=== PATIENT | male | born 1945 | race Caucasian/White ===

== ENCOUNTER 2017-04-13 22:13 | Emergency (ER) | payer MEDICARE ==
[2017-04-13] MEDS ORDERED: NS 0.9% 1000 ML* 1,000 ML IV ONE (22:34)
[2017-04-13 23:02] LABS: Hematocrit 35 % (42-52); Hemoglobin 11.7 g/dl (14.0-18.0); Mean Corpuscular HGB Conc 33 g/dl (31-36); Mean Corpuscular Hemoglobin 30 pg (27-31); Mean Corpuscular Volume 91 fL (80-94); Mean Platelet Volume 8 um3 (7.4-10.4); Red Blood Count 3.88 10^6/ul (4.0-5.4); Red Cell Distribution Width 14 % (10.5-15); White Blood Count 16.7 10^3/ul (3.5-10.8)
[2017-04-13 23:06] LABS: Comments Flag Yes
[2017-04-13 23:12] LABS: Urine Bacteria Absent (Absent); Urine Bilirubin Negative (Negative); Urine Glucose Negative (Negative); Urine Nitrite Negative (Negative)
[2017-04-13 23:17] LABS: BUN/Creatinine Ratio 18.5 (8-20); Calcium 9.6 mg/dL (8.6-10.3); EGFR African American 73.5 (>60); EGFR Non-African American 57.1 (>60); Globulin 2.6 g/dL (2-4); Total Bilirubin 0.6 mg/dL (0.2-1.0); Total Protein 6.6 g/dL (6.4-8.9)
[2017-04-13] MEDS ORDERED: Iodixanol* (CONTRAST) 320 MG/ML 100 ML SDV IV ONE (23:34)
[2017-04-13 23:48] LABS: Hypochromasia 1+; Macrocytosis 1+; Microcytosis 1+; Polychromasia 1+
[2017-04-13 23:53] LABS: Add Diff/Slide Review? Manual Diff Added
[2017-04-13 23:56] LABS: Add Path Review? YES; Immature Granulocytes 2 % (0-9); Neutrophil % 46 % (38-83); Reactive Lymph % 1 % (0-6)
[2017-04-14] MEDS ORDERED: Levofloxacin TAB* 500 MG PO ONE (00:33)
--- NOTE | 2017-04-14 00:40 | ED ---
Tino Lea Rebecca, scribed for Ronak Velez on 04/13/17 at 2227 . GI/ HPI - HPI Summary HPI Summary: Pt is a 71 y/o M who presents to ED c/o hematuria. Sx began suddenly at 2115 tonight and have been intermittent since onset. Reports 3 episodes of urination since onset, all of which have had blood. Sx aggravated and alleviated by nothing. Denies fever, cough, SOB. Denies any pain. Denies any trauma though he notes heavy lifting over the weekend. Takes 40 mg ASA every day. 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 Urologist is Dr. Hall, last seen 3 weeks ago. - History of Current Complaint Chief Complaint: EDUrogenitalProblems Time Seen by Provider: 04/13/17 22:24 Stated Complaint: BLOOD IN URINE Hx Obtained From: Patient Onset/Duration: Started Hours Ago - 1 hour ago, Still Present Timing: Intermittent - 3 episodes of hematuria Current Severity: None Pain Intensity: 0 Associated Signs and Symptoms: Positive: Hematuria, Other: - Denies SOB and any pain. Negative: Fever, Cough Aggravating Factor(s): Nothing Alleviating Factor(s): Nothing - Allergy/Home Medications Allergies/Adverse Reactions: Allergies Allergy/AdvReac Type Severity Reaction Status Date / Time Diclofenac Allergy FLUID Verified 04/13/17 22:15 RETENTION Ibuprofen Allergy FLUID Verified 04/13/17 22:15 RETENTION PMH/Surg Hx/FS Hx/Imm Hx Endocrine/Hematology History: Denies: Hx Diabetes, Hx Thyroid Disease Cardiovascular History: Denies: Hx Congestive Heart Failure, Hx Deep Vein Thrombosis, Hx Hypertension , Hx Myocardial Infarction, Hx Pacemaker/ICD Respiratory History: Denies: Hx Asthma, Hx Chronic Obstructive Pulmonary Disease (COPD), Hx Lung Cancer, Hx Pneumonia, Hx Pulmonary Embolism GI History: Reports: Hx Gastroesophageal Reflux Disease Denies: Hx Gall Bladder Disease, Hx Gastrointestinal Bleed, Hx Ulcer, Hx Urosepsis History: Denies: Hx Dialysis, Hx Kidney Stones, Hx Renal Disease Musculoskeletal History: Reports: Hx Arthritis - HANDS Denies: Hx Rheumatoid Arthritis, Hx Osteoporosis Sensory History: Reports: Hx Contacts or Glasses - GLASSES, Hx Hearing Aid - BILATERAL,WILL REMOVE Opthamlomology History: Reports: Hx Contacts or Glasses - GLASSES Neurological History: Denies: Hx Dementia, Hx Migraine, Hx Seizures, Hx Transient Ischemic Attacks (TIA) Psychiatric History: Reports: Hx Depression Denies: Hx Anxiety, Hx Panic Disorder, Hx Schizophrenia, Hx Bipolar Disorder - Cancer History Cancer Type, Location and Year: 2013 - Surgical History Surgery Procedure, Year, and Place: 1970s APPENDECTOMY [place],. 1949s T&A [place]. 1970s LEFT KNEE [place],TURP. 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 Negative: pain All Other Systems Reviewed And Are Negative: Yes Physical Exam - Summary Physical Exam Summary: Appearance: Well appearing, no pain distress Skin: warm, dry, reflects adequate perfusion Head/face: normal Eyes: EOMI, KRZYSZTOF ENT: normal Neck: supple, nontender Resp: CTA, breath sounds present Cardio: RRR, pulses symm Abd: nontender, soft Bowel: present Musc: normal, strength/ROM intact Neuro: normal, sensory motor intact, A&Ox3 Triage Information Reviewed: Yes Vital Signs On Initial Exam: Initial Vitals Temp Pulse Resp BP Pulse Ox 98.2 F 68 18 150/73 98 04/13/17 22:15 04/13/17 22:15 04/13/17 22:15 04/13/17 22:15 04/13/17 22:15 Vital Signs Reviewed: Yes Diagnostics - Vital Signs Vital Signs Temp Pulse Resp BP Pulse Ox 04/13/17 22:15 98.2 F 68 18 150/73 98 - Laboratory Result Diagrams: 04/13/17 22:54 04/13/17 22:54 Lab Statement: Any lab studies that have been ordered have been reviewed, and results considered in the medical decision making process. - CT Abd/Pel CT CT Interpretation: No Acute Changes - No inflammatory process identified in the abdomen or pelvis. No adenopathy or collection seen. No explanation seen for this patient's hematuria. CT Interpretation Completed By: Radiologist Re-Evaluation - Re-Evaluation First Eval Re-Evaluation Time: 00:33 Change: Improved Comment: Discussed results with pt and the curent D/C plan. He agrees and understands. GIGU Course/Dx - Course Assessment/Plan: Pt is a 71 y/o M with a CC of 3 episodes of hematuria since 2100 tonight. Denies any pain, fever, SOB, cough. No recent trauma. 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 UA reveals urine color: red, specific gravity: 1.008, urine protein: 2+, urine blood: 3+, leukocyte esterate : 3+, urine WBC: 3+, urine RBC 3+. WBC: 16.7. Findings consistent with UTI. Abd/ Pel CT reveals no acute findings. Pt will be D/C to home with Dx of hematuria, UTI and Hx of CLL with an Rx for Abx and a follow up with urology. Pt understands and is agreeable. - Diagnoses Provider Diagnoses: UTI (urinary tract infection), Hematuria, History of chronic lymphocytic leukemia Discharge - Discharge Plan Condition: Stable Disposition: HOME Prescriptions: Levofloxacin TAB* [Levaquin TAB*] 500 mg PO DAILY #9 tab Patient Education Materials: Urinary Tract Infection in Men (ED), Hematuria (ED ) Referrals: Manuel Abraham MD [Medical Doctor] - 3 Days (Follow up within the next 3 days. ) The documentation as recorded by the Tino treadwell Rebecca accurately reflects the service I personally performed and the decisions made by , Ronak Velez.
[2017-04-14 00:52] VITALS: BP 114/58
--- NOTE | 2017-04-14 07:33 | RAD ---
INDICATION: Hematuria COMPARISON: CT September 30, 2016 TECHNIQUE: Axial source images were obtained from the hemidiaphragms to the symphysis pubis following administration of 90 mL Visipaque 320. The examination was requested without oral contrast. Coronal and sagittal reconstructed images were acquired. Lung bases: There is mild bibasilar atelectasis. Liver: The liver is normal in size. There are no masses. There is no ductal dilatation. Gallbladder: The gallbladder is partially contracted. There may be a small amount of pericholecystic fluid. Spleen: The spleen is normal in size. There are no masses. Pancreas: There is no focal pancreatic mass or ductal dilatation. Adrenal glands: There is no evidence of adrenal mass. Kidneys: The right kidney is remarkable for a small renal cortical cysts. The left renal mass has been resected compatible with partial nephrectomy. There is a localized fluid collection with a small amount of fat consistent with this partial nephrectomy. There is prompt perfusion and excretion bilaterally. Adenopathy: There is no evidence of adenopathy by size criteria. Fluid collections: There are no free or localized fluid collections. Vessels:There are no significant atherosclerotic changes involving the aorta. There is no focal aneurysm. The iliac vessels are normal in caliber. The IVC appears normal. GI tract: Limited evaluation without oral contrast. No obstructive findings. Mild distention stomach with ingested material. Pelvic organs: The prostate is enlarged Bladder: There are no bladder masses. The bladder wall is mildly trabeculated. Abdominal and pelvic soft tissues: Small fat-containing bilateral inguinal hernias with prior repair on the right. Osseous structures: There are no acute osseous findings. Other: None IMPRESSION: 1. Interval partial left nephrectomy. 2. Partially contracted gallbladder. 3. BPH with mildly trabeculated bladder wall. 4. Small fat-containing inguinal hernias are noted bilaterally.
--- NOTE | 2017-04-16 08:48 | PN ---
Progress Note - Progress Note Note: Patient's preliminary urine culture obtained and showed E.Coli growth of 10-25, 000. Was diagnosed and treated with Levaquin while in ED. Will wait for final culture results. No change needed at this time.
--- NOTE | 2017-04-17 08:54 | PN ---
Progress Note - Progress Note Note: Final culture results show susceptibility to Levaquin. This is what patient was treated with while in ED. No change needed at this time.
== END 2017-04-14 00:51 | disposition home or self-care (01) ==
LOC: ED 22:13
DX: R31.9 Hematuria, unspecified (principal); N39.0 Urinary tract infection, site not specified
CPT/HCPCS: 36415; 74177; 80053; 81003; 81015; 82550; 83690; 85025; 85060; 85610; 85730; 87077; 87086; 87186; 99283; Q9967

== ENCOUNTER 2017-07-26 06:36 | Observation (INO) | payer MEDICARE ==
--- NOTE | 2017-07-05 10:29 | HP ---
CC: Dr. Jignesh Lemus* DATE OF PLANNED ADMISSION AND SURGERY: 07/26/17 HISTORY OF PRESENT ILLNESS: Mr. Gandhi is a 71-year-old white male who is admitted with partial urinary retention and prostate enlargement for cystoscopy and transurethral resection of the prostate. I have been following Mr. Gandhi for the last 20 years because of a history of bladder outlet obstruction and prostate enlargement. He underwent a transurethral resection of the prostate in 2000 for partial urinary retention. In 2006, there was recurrence of his voiding symptoms and the prostate had again enlarged, and he underwent another transurethral resection. The pathology was benign. Over the last 3-4 years, he developed recurrence of his obstructive voiding symptoms, and cystoscopy showed an enlarging obstructing prostate. But, his voiding was manageable. In November 2016, he was noted to have a solid mass of his left kidney. He underwent a partial robotic laparoscopic left nephrectomy at [facility]. 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 He had been followed by periodic ultrasounds. Following his partial nephrectomy, patient went into urinary retention and has had residual in the vicinity of 300 cc. He had been managed by intermittent self-catheterizations, and also was placed on Finasteride and Tamsulosin. He has continued to have a post-void residual varying between 100 to 300 cc. He had cystoscopy which confirmed a large and obstructing prostate. Urodynamic studies showed a high voiding diestrual pressure of 65 cm of water, indicating obstruction as well as good diestrual function, making him a good candidate for transurethral resection of the prostate. PAST MEDICAL HISTORY AND SYSTEM REVIEW: The patient has chronic lymphocytic leukemia diagnosed in May 2014. He has been asymptomatic and on no treatment. His white count is about 17,000. His platelets are 140,000. He has been doing well and has not required any treatment. Two months ago, he presented to the emergency room with gross hematuria and urinary tract infection that was noted to be secondary to his large prostate and large post-void residual. On that visit, he had a CT of the abdomen and pelvis which was normal, showing only the changes of partial left nephrectomy. There were no calculi and no other renal masses. The prostate was enlarged. He was treated with a course of antibiotic with resolution of his symptoms. The patient has a history of depression. He also has osteoporosis. MEDICATIONS: He is maintained on Celexa 40 mg daily. He is on iron supplement. He takes vitamin D and calcium supplement. ALLERGIES: He denies any allergies to medications. SOCIAL HISTORY: He gives distant history of smoking. He drinks 1-2 beers a day. PHYSICAL EXAMINATION GENERAL: Pleasant and healthy-looking white male. VITAL SIGNS: Blood pressure 130/70, pulse 60. HEART: Regular and rhythmic, no murmurs. LUNGS: Clear. ABDOMEN: Soft, no masses, no tenderness, and no CVA tenderness. EXTERNAL GENITALIA: Normal. RECTAL EXAM: Showed an enlarged but non-suspicious prostate. IMPRESSION: 1. Partial urinary retention due to prostate enlargement, history of urinary tract infection, good destrual function by urodynamic studies. 2. History of oncocytoma of the left kidney, status post partial left nephrectomy with good surgical result. 3. Chronic lymphocytic leukemia, asymptomatic, stable, and on no treatment. PLAN: For cystoscopy and transurethral resection of the prostate. I discussed the above plans in detail with the patient. Some of the potential complications, including gross hematuria, urinary retention, and a small incidence of urinary incontinence. I discussed all the above plans with the patient and all his questions were answered. [id number]/[facility] #: [id number] [facility] FACILITYRodrigo
[~2017-07-26 06:36] MED LIST: Buffered Lidocaine 0.9% SYRIN* 5 ML/SYR SYRINGE INTRADERM ONE
[2017-07-26] MEDS ORDERED: cefTRIAXone(*) 2 GM ADDV.VIAL IVPB ONE (06:42)
[2017-07-26] MEDS ORDERED: Buffered Lidocaine 0.9% SYRIN* 5 ML/SYR SYRINGE ONE (06:42)
[2017-07-26] MEDS ORDERED: fentaNYL* 50 MCG/ML 2 ML VIAL (100 MCG VIAL) ONE (07:01)
[2017-07-26] MEDS ORDERED: Midazolam* 1 MG/ML 2 ML VIAL (2 MG) ONE (07:01)
[2017-07-26] MEDS ORDERED: fentaNYL* 50 MCG/ML 2 ML VIAL (100 MCG VIAL) IV PRN (07:49)
[2017-07-26] MEDS ORDERED: Ondansetron INJ* 2 MG/ML VIAL IV PRN (07:49)
[2017-07-26] MEDS ORDERED: DiMENhydriNATE IV* 50 MG/ML VIAL IV PUSH PRN (07:49)
[2017-07-26] MEDS ORDERED: HYDROcodone/ACETAMIN 5-325 MG* 1 TAB PO PRN (07:49)
[2017-07-26] MEDS ORDERED: Acetaminophen TAB* 325 MG PO PRN (07:49)
[2017-07-26] MEDS ORDERED: Desflurane* 240 ML INH ONE (08:15)
[2017-07-26] MEDS ORDERED: Dexamethasone IV* 4 MG/ML 1 ML (4 MG) ONE (08:15)
[2017-07-26] MEDS ORDERED: Lidocaine 2% PF * 5 ML VIAL ONE (08:15)
[2017-07-26] MEDS ORDERED: Propofol* 10 MG/ML 20 ML BTL IV PUSH ONE (08:15)
[2017-07-26] MEDS ORDERED: Famotidine IV* 10 MG/ML 2 ML (20 mg) ONE (08:15)
[2017-07-26] MEDS ORDERED: KETAMINE HCL* 50 MG/ML 10 ML VIAL ONE (08:18)
[2017-07-26] MEDS ORDERED: EPHEDrine (Pressors)* 50 MG/ML VIAL ONE (08:26)
[2017-07-26] MEDS ORDERED: oxyCODONE/Acetamin 5/325 MG* TAB PO PRN ×2 (13:13→13:28)
[2017-07-26] MEDS ORDERED: Oxybutynin TAB* 5 MG PO PRN (13:13)
[2017-07-26] MEDS ORDERED: Lidocaine 2% JELLY* 6 ML JELLY TOPICAL PRN (13:30)
[2017-07-26] MEDS ORDERED: Citalopram TAB* 40 MG PO SCH (18:00)
[2017-07-26] MEDS: FLAX SEED OIL PO SCH (20:47)
[2017-07-26] MEDS: diPHENhydraMINE PO* 25 MG PO SCH (20:48)
[2017-07-26] MEDS: Acetaminophen TAB* 325 MG PO SCH (20:48)
[2017-07-26] MEDS: Nabumetone TAB* 500 MG PO SCH (20:48)
[2017-07-26] MEDS: Calcium Carbonate TAB* 1250 MG (CALCIUM 500 MG) PO SCH (20:48)
[2017-07-26] MEDS: Ascorbic Acid TAB* 500 MG PO SCH (20:54)
--- NOTE | 2017-07-26 23:23 | OP ---
CC: Dr. Lemus * DATE OF OPERATION: 07/26/17 - ROOM #331 DATE OF : 41 SURGEON: Krystian Hall MD ANESTHESIOLOGIST: Dr. Jed Riojas. ANESTHESIA: General. PRE-OP DIAGNOSES: 1. Partial urinary retention. 2. Benign prostatic hyperplasia. POST-OP DIAGNOSES: 1. Partial urinary retention. 2. Benign prostatic hyperplasia. OPERATIVE PROCEDURE: Cystoscopy, transurethral resection of the prostate. INDICATION FOR PROCEDURE: Mr. Gandhi is a 71-year-old white male who had a long history of prostate enlargement and bladder outlet obstruction. He had undergone a transurethral resection of the prostate in 2000 because of obstructive disease. At that time, the pathology was benign. Because of recurrence of the obstructive symptoms, he had another transurethral resection of the prostate in 2006. Over the last 2 to 3 years, he had recurrence of his obstructive voiding symptoms and has been maintained on finasteride and tamsulosin. Following partial nephrectomy for an oncocytoma, he went into urinary retention and has been on on and off intermittent self catheterization. Cystoscopy showed a large obstructing prostate and urodynamic study showed a high voiding detrusor pressure with a low flow. He continued to have residuals up to 300 cc. Because of the above history and findings and the recurrence of the prostate obstruction, TURP was advised and accepted. PATHOLOGY AT CYSTOSCOPY: The penile and bulbar urethrae looked normal. There was a slight stricture in the bulbar urethra that dilated easily with the cystoscope. The verumontanum was not prominent. There was regrowth of the obstructive prostate tissue involving both the lateral lobes and the anterior tissue. Examination of the bladder showed normal ureteral orifices. There were moderate diffuse bladder trabeculations. No suspicious bladder lesions were seen. No calculi or diverticula were noted. The prostate adenoma was minimally vascular. DESCRIPTION OF PROCEDURE: After successful general anesthesia, the patient was placed in the lithotomy position and prepped and draped for cystoscopy. Cystoscopy was performed. The findings in the bulbar and the prostatic urethrae were noted. The bladder was then entered and inspected and the above findings were noted. The resectoscope was then introduced inside the bladder under direct vision. There was no difficulty introducing the scope through the bulbar stricture. Mannitol, sorbitol solution was used for irrigation and the inflow and outflow were adjusted to avoid overdistention of the bladder. The prostate adenoma tissue projecting inside the bladder neck was resected first circumferentially making sure to preserve the ureteral orifices. The adenoma was then resected between 5 o'clock and 7 o'clock allowing the visualization of the bladder neck through the level of the verumontanum. Resection of the adenoma was then continued from 5 o'clock and proceeding anteriorly. The right lobe was resected next. The roof and the apical tissue were resected last. Because of the flat verumontanum, care was taken not to resect beyond its level. The bleeders were electrocoagulated and controlled. The bladder was irrigated and all the resected tissue was evacuated. At the completion of the resection, the prostatic urethra was wide open. The verumontanum and the external sphincter were intact. There were 2 cuts through the capsule at 11 o'clock in the mid prostatic urethra, but there were no open sinuses. The ureteral orifices and the bladder were intact. After making sure there was very good hemostasis and no residual resected tissue , the resectoscope was removed and a size 22-Telugu Warren catheter was passed inside the bladder and the balloon inflated with 30 cc of water. The catheter was placed under gentle traction and taped to the right thigh of the patient. Irrigation yielded clear returns. The patient tolerated the procedure well and left the operating room in good condition. The blood loss was minimal at less than 50 cc. The specimen was prostate chips. [id number]/[facility] #: [id number] [facility]ILITYRodrigo
[2017-07-27 07:39] VITALS: BP 128/59
[2017-07-27] MEDS: Ascorbic Acid TAB* 500 MG PO SCH (08:11)
[2017-07-27] MEDS: Calcium Carbonate TAB* 1250 MG (CALCIUM 500 MG) PO SCH (08:12)
[2017-07-27] MEDS: diPHENhydraMINE PO* 25 MG PO SCH (08:12)
[2017-07-27] MEDS: Acetaminophen TAB* 325 MG PO SCH (08:12)
[2017-07-27] MEDS: Nabumetone TAB* 500 MG PO SCH (08:12)
[2017-07-27] MEDS: FLAX SEED OIL PO SCH (08:17)
[2017-07-27] MEDS ORDERED: cefTRIAXone VIAL(*) 1,000 MG in NS 0.9% 50 ML* 50 ML IVPB ONE (09:00)
[2017-07-27] MEDS ORDERED: Finasteride TAB* 5 MG PO SCH (09:00)
[2017-07-27] MEDS ORDERED: Multivitamins/Minerals TAB PO SCH (09:00)
[2017-07-27] MEDS ORDERED: Cyanocobalamin TAB* 500 MCG PO SCH (09:00)
--- NOTE | 2017-07-27 19:08 | DS ---
DISCHARGE SUMMARY: DATE OF ADMISSION: 07/26/17 DATE OF DISCHARGE: 07/27/17 FINAL DIAGNOSES: 1. Benign prostatic hyperplasia. 2. Bladder outlet obstruction due to above. 3. Chronic lymphocytic leukemia. OPERATION: Transurethral resection of the prostate. HISTORY: Mr. Gandhi is a 71-year-old white male, who had a history of bladder outlet obstruction and prostate enlargement. He had a TURP for partial retention in 2000. Because of recurrent obstructive symptoms, he had another TURP in 2006. Pathology was benign. He recently developed increasing voiding symptoms with partial urinary retention. He has been on intermittent catheterizations as needed. His postvoid residual was about 300 cc. Cystoscopy showed an enlarged and obstructing prostate. Urodynamic studies showed high voiding detrusor pressor of 65 cm of water. The patient has been maintained on tamsulosin and has continued to be symptomatic. Because of the above history and findings, TURP was advised and accepted. PAST MEDICAL HISTORY AND SYSTEM REVIEW: He has chronic lymphocytic leukemia, diagnosed 3 years ago. He has been asymptomatic, on no treatment with his white count about 17,000. He had a partial left nephrectomy for an oncocytoma and has done very well postoperatively. He has history of depression, on Celexa. He has osteoporosis on vitamin D and calcium supplements. ALLERGIES: He denies any allergies to medications. Preoperative lab work showed an elevated white count of 14,000 with 56% lymphocytes. H and H was 12.6-38. Platelet count 141,000. His preoperative PSA was elevated at 7; however, this was associated with a urinary tract infection. The patient had an Enterococcus in his urine and was placed on preoperative Bactrim. Preoperative physical examination was within normal. Rectal exam showed an enlarged, but nonsuspicious prostate. COURSE IN THE HOSPITAL: The patient was admitted on the morning of surgery. He underwent an uncomplicated transurethral resection of the prostate under general anesthesia. He was kept overnight for observation. He did very well. His urine remained clear and had no fever. He was discharged next morning with a Warren catheter. He was instructed to complete the course of the antibiotic. He will be seen in the office in 4 days for catheter removal. [id number]/[facility] #: [id number] MTDD
== END 2017-07-27 10:05 | disposition home or self-care (01) ==
LOC: OR 06:36 → SSU 11:49
PROVIDERS: ADMIT Urology; ATTEND Urology
PROC: 0VT08ZZ Resection of Prostate, Via Natural or Artificial Opening Endoscopic (ICD-10-PCS; principal; 2017-07-26 07:45)
DX: N40.1 Benign prostatic hyperplasia with lower urinary tract symptoms (principal); N13.8 Other obstructive and reflux uropathy; R33.8 Other retention of urine; C91.10 Chronic lymphocytic leukemia of B-cell type not having achieved remission; Z88.8 Allergy status to other drugs, medicaments and biological substances; M81.0 Age-related osteoporosis without current pathological fracture; Z87.891 Personal history of nicotine dependence
CPT/HCPCS: 88305; 96365; A9270-GY; G0378; J0696; J1100; J2250; J2704; J3010